=== PATIENT | female | born 1990 | race Two or more races ===

== ENCOUNTER 2019-04-17 08:44 | Emergency (ER) | payer OTHER ==
[~2019-04-17] VITALS: Ht 160 cm; Wt 149.7 kg
== END 2019-04-17 14:03 | disposition home or self-care (01) ==
LOC: ER 08:44
DX: K43.9 Ventral hernia without obstruction or gangrene (principal)

== ENCOUNTER 2022-11-17 14:33 | Emergency (ER) | payer OTHER ==
[~2022-11-17] VITALS: Ht 154.9 cm; Wt 140.6 kg
[2022-11-17] MEDS ORDERED: METFORMIN HCL500 M3 PO (14:44)
[2022-11-17] MEDS ORDERED: TIROSINT75 MCG PO (14:44)
== END 2022-11-17 19:04 | disposition home or self-care (01) ==
LOC: ER 14:33
DX: M25.562 Pain in left knee (principal); Z88.0 Allergy status to penicillin